=== PATIENT | male | born 2005 | race Caucasian/White ===

== ENCOUNTER 2025-01-06 10:19 | Outpatient (REF) | payer OTHER, SELFPAY ==
[2025-01-06 18:04] LABS: MANUAL DIFF FLAG NO
[2025-01-06 18:11] LABS: Appearance Urine Clear; Glucose Urine UA 100 mg/dL (Negative); PH 6.0 (5.0-9.0); Specific Gravity - Urine 1.020 (1.005-1.025)
[2025-01-06 18:17] LABS: Hematocrit 50.4 % (42.0-52.0); Hemoglobin 17.5 g/dl (14.0-18.0); Imm Gran Abs Auto 0.01 X10*3/uL (0.00-0.03); Imm Gran Pct Auto 0.2 % (0.0-0.4); Lymphocytes Absolute Auto 1.8 X10*3/uL (1.2-4.9); Mean Corpuscular HGB Conc 34.7 g/dl (31.0-36.0); Mean Corpuscular Hemoglobin 28.0 pg (27.0-33.0); Mean Corpuscular Volume 80.6 fL (80.0-98.0); NRBC Abs Auto 0.000 X10*3/uL (0.0-0.012); NRBC Pct Auto 0.0 /100WBC (0.0-0.2); Platelet Count 257 X10*3/uL (160-400); Red Blood Count 6.25 X10*6/uL (4.60-5.80); White Blood Count 5.5 X10*3/uL (4.8-10.8)
[2025-01-06 18:36] LABS: Alanine Aminotransferase 21 U/L (0-40); Albumin Level 5.4 g/dL (3.5-5.0); Alkaline Phosphatase 94 U/L (39-117); Anion Gap 11 (12-20); Aspartate Amino Transferase 31 U/L (5-37); Blood Urea Nitrogen 9 mg/dL (9-16); Calcium 10.4 mg/dL (8.4-10.2); Carbon Dioxide 29 mmol/L (22-29); Chloride 104 mmol/L (96-108); Cholesterol 126 mg/dL (<200); Estimated Glomerular Filt Rate > 60; HDL Cholesterol 56 mg/dL (>40); Potassium 4.3 mmol/L (3.3-5.1); Sodium 140 mmol/L (135-145); Total Protein 8.2 g/dL (6.5-8.0); Triglycerides 81 mg/dL (<150)
[2025-01-06 18:59] LABS: Folate 10.0 ng/mL (> or = 4.0); Vitamin B12 765 pg/mL (200-900)
[2025-01-07 03:14] LABS: CT PCR Urine NOT DETECTED (Not Detect.); NG PCR Urine NOT DETECTED (Not Detect.)
[2025-01-07 13:05] LABS: Syphilis Screen Nonreactive (Nonreactive)
[2025-01-07 14:16] LABS: HBS Num1 0.37 mIU/mL (0-7.99); HBsAGNum1 0.42 S/CO (0.00-0.99); HIV Num 1 0.07 S/CO (0.00-0.99); Hepatitis B Surface Antigen Negative (Negative); ~HepC Num1 0.16 S/CO (0.00-0.79); ~Hepatitis B Surface Antibody NONREACTIVE (Nonreactive); ~Hepatitis C Antibody Nonreactive (Nonreactive)
[2025-01-09 18:43] LABS: Chlamydia Trachomatis IgA <1:16 titer (<1:16)
[2025-01-10 15:24] LABS: VITAMIN D (1,25 OH) D3 42 pg/mL; Vit D (1,25-Dihydroxy) Total 42 pg/mL (18-72); Vitamin D (1,25 OH) D2 <8 pg/mL
== END 2025-01-06 10:20 | disposition home or self-care (01) ==
LOC: HO.HKASLDS 10:19
PROVIDERS: Visit Provider Student in an Organized Health Care Education/Training Program
DX: Z76.89 Persons encountering health services in other specified circumstances (principal); B80 Enterobiasis; H60.549 Acute eczematoid otitis externa, unspecified ear; Z71.9 Counseling, unspecified; Z13.6 Encounter for screening for cardiovascular disorders; Z11.4 Encounter for screening for human immunodeficiency virus [HIV]; Z11.3 Encounter for screening for infections with a predominantly sexual mode of transmission; Z13.1 Encounter for screening for diabetes mellitus; Z13.220 Encounter for screening for lipoid disorders
CPT/HCPCS: 80053; 80061; 81003; 82607; 82652; 82746; 83036; 85025; 86631; 86632; 86706; 86780; 86803; 87340; 87389; 87491; 87591; 96127

== ENCOUNTER 2025-01-06 10:19 | Outpatient (AMB) | payer OTHER, SELFPAY ==
--- NOTE | 2025-01-06 10:21 | MHC.PC.OV ---
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, strep throat Improvement Lead Required: No Accompanied by: Self / Same As Patient Allergies No Known Allergies Allergy (Verified 01/06/25 10:21) Tobacco use date assessed: 01/06/25 Dental Screening Dental Screen Date: 01/06/25 Did you have a dental visit in the last 12 months?: Yes Did you have a dental problem in the last 6 months where you did not have access to dental care?: No Was dental information given to patient?: Patient has dentist HPI HPI Comments History of Present Illness Details History of Present Illness The patient is a 19-year-old male presenting for a wellness visit and evaluation of itchy ears and anal region. Eczema: - Reports itchy ears for six months, initially relieved by ear drops, but symptoms have returned with severe itching causing bleeding. - Previous diagnosis of eczema was suggested by another physician. Pinworms: - Reports nocturnal anal itching without abdominal pain, suspected to be pinworms, and treatment with albendazole was discussed. Review of Systems - Dermatological: Reports itchy ears for six months, severe enough to cause bleeding. - Gastrointestinal: Reports nocturnal anal itching, denies abdominal pain. - ENT: Reports history of strep throat and double ear infection, denies current throat pain. 10-point ROS reviewed and negative except as noted in HPI Past Medical History - History of strep throat and double ear infection Health Maintenance - Comprehensive blood work including CBC, CMP, lipid panel, and vitamin levels planned. - Screening for HIV, Hepatitis B and C, and sexually transmitted infections planned. Physical Exam General: Well-appearing, in no acute distress. Vital signs: Within normal limits. HEENT: Normocephalic, atraumatic. PERRLA, EOMI. Conjunctiva clear, sclera anicteric. Oropharynx clear, mucous membranes moist. TMs intact bilaterally, but noted dermatitis and itchiness in the ears. Neck: Supple, no lymphadenopathy, no thyromegaly, no JVD or carotid bruits. Cardiovascular: RRR, normal S1/S2, no murmurs, rubs, or gallops. Peripheral pulses 2+ and symmetric. No edema. Respiratory: Lungs clear to auscultation bilaterally, no wheezes, rales, or rhonchi. Normal effort. Abdomen: Soft, non-tender, non-distended. Normoactive bowel sounds. No hepatosplenomegaly, no masses. MSK: Full range of motion, no joint swelling or deformity. Normal gait. Skin: Warm, dry, intact. No rashes, lesions, or pallor. Neuro: Alert and oriented x3. Cranial nerves II-XII intact. Strength 5/5 throughout. Sensation intact. Reflexes 2+ symmetric. Normal coordination and gait. Psych: Appropriate mood and affect. Normal judgment and insight. Plan 1. Dermatitis, unspecified L30.9 - Use mineral oil with a Q-tip for ear dryness and itching. Follow-up if symptoms persist. 2. Pinworms - Treat with albendazole, one dose now and repeat in two weeks. Explained treatment rationale. Discussion Notes During the visit, we discussed the patient's symptoms of itchy ears and anal region. I explained the potential diagnosis of eczema for the ears and pinworms for the anal itching. We reviewed the treatment plan, including the use of mineral oil for the ears and albendazole for pinworms. I emphasized the importance of follow-up if symptoms persist and reassured the patient about the nature of pinworms and the effectiveness of the treatment plan. Patient Instructions - Apply mineral oil to the ears with a Q-tip to reduce itching. - Take albendazole as prescribed: one dose now and repeat in two weeks. - Return for follow-up if symptoms persist or worsen. PFSH Family History (Updated 01/06/25 @ 10:28 by Micaela Quiles MA) Father Heart problem Mother Crohn disease Social History (Updated 01/06/25 @ 10:29 by Micaela Quiles MA) Housing: House Alcohol intake: current Alcohol intake frequency: does not drink Patient Tobacco Use Status: Former Tobacco user e-Cigarette/Vaping Use: Currently Using service: No Current occupational status: employed Cognitive needs: No Hearing needs: No Vision needs: No Questionnaire PHQ-9 Over the last 2 weeks, how often have you been bothered by any of the following problems? 1. Little interest or pleasure in doing things: not at all 2. Feeling down, depressed, or hopeless: not at all 3. Trouble falling or staying asleep, or sleeping too much: not at all 4. Feeling tired or having little energy: not at all 5. Poor appetite or overeating: not at all 6. Feeling bad about yourself - or that you are a failure or have let yourself or your family down: not at all 7. Trouble concentrating on things, such as reading the newspaper or watching television: not at all 8. Moving or speaking so slowly that other people could have noticed. Or the opposite - being so fidgety or restless that you have been moving around a lot more than usual: not at all 9. Thoughts that you would be better off or of hurting yourself in some way: not at all Total score: 0 Source: Developed by Drs. Gabe Herman, Sisi Salazar, Lonnie Hudson and colleagues, with an educational winnie from [employer]. Thrive Questionnaire Date Thrive assessed: 01/06/25 I am a: Patient What is your living situation today?: I have a steady place to live Within the past 12 months, did the food you bought not last and you didn't have the money to get more?: Never true Within the past 12 months, did you worry whether your food would run out before you got money to buy more?: Never true Do you have trouble paying for medicines?: No Do you have trouble getting transportation to medical appointments?: No Do you have trouble paying your heating and electricity bill?: No Do you have trouble taking care of your child, family member or friend?: No Do you have trouble with day-to-day activities such as bathing, preparing meals, shopping, managing finances, etc.?: No Are you currently unemployed and looking for a job?: No Are you interested in more education?: No Please select the resources that you would like help with: None THRIVE Score: 0 AUDIT C Alcohol Use Questionnaire (AUDIT-C) 1. How often do you have a drink containing alcohol?: Never 3. How often do you have six or more drinks on one occasion?: Never Total Score: 0 HAO-7 AMB Questionnaire HAO-7 Date HAO - 7 assessed: 01/06/25 Feeling nervous, anxious, or on edge: 0 = Not at all Not being able to stop or control worryin = Not at all Worrying too much about different things: 0 = Not at all Trouble relaxin = Not at all Being so restless that it is hard to sit still: 0 = Not at all Becoming easily annoyed or irritable: 0 = Not at all Feeling afraid as if something awful might happen: 0 = Not at all Total HAO-7 score (0-4 normal; 5-9 mild; 10-14 moderate; 15-21 severe): 0 Source: Developed by Drs. Gabe Herman, Sisi Salazar, Lonnie Hudson and colleagues, with an educational winnie from [employer]. Physical exam (Primary Care) Vital Signs: Last Vital Signs Temp 97.6 F 01/06/25 10:24 Pulse 95 01/06/25 10:24 Resp 16 01/06/25 10:24 BP 110/72 01/06/25 10:24 Pulse Ox 100 01/06/25 10:24 Oxygen Delivery Method Room Air 01/06/25 10:24 BMI result Body Mass Index 20.0 Tobacco/Smoking Status: Tobacco use Status Tobacco use date assessed 01/06/25 01/06/25 10:32 Patient Tobacco Use Status Former Tobacco user 01/06/25 10:32 e-Cigarette/Vaping Use Currently Using 01/06/25 10:32 PHQ-9: PHQ-9 Score PHQ-9: Total score 0 01/06/25 10:32 Thrive Assessment: Date of Thrive Assessment Date Thrive assessed 01/06/25 01/06/25 10:32 Coding Level of Care Code New Pt Level 3 (65566) Diagnoses Establishing care with new doctor, encounter for Z76.89 Encounter for screening, unspecified Z13.9 Counseling, unspecified Z71.9 Hypertension screen Z13.6 Screening for HIV (human immunodeficiency virus) Z11.4 Routine screening for STI (sexually transmitted infection) Z11.3 Screening for diabetes mellitus Z13.1 Screening for lipoid disorders Z13.220 Pinworms B80 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 Assessment & Plan Assessment & Plan (1) Establishing care with new doctor, encounter for: Code(s): Z76.89 - Persons encountering health services in other specified circumstances (2) Encounter for screening, unspecified: Code(s): Z13.9 - Encounter for screening, unspecified (3) Counseling, unspecified: Code(s): Z71.9 - Counseling, unspecified (4) Hypertension screen: Code(s): Z13.6 - Encounter for screening for cardiovascular disorders (5) Screening for HIV (human immunodeficiency virus): Code(s): Z11.4 - Encounter for screening for human immunodeficiency virus [HIV] (6) Routine screening for STI (sexually transmitted infection): Code(s): Z11.3 - Encounter for screening for infections with a predominantly sexual mode of transmission (7) Screening for diabetes mellitus: Code(s): Z13.1 - Encounter for screening for diabetes mellitus (8) Screening for lipoid disorders: Code(s): Z13.220 - Encounter for screening for lipoid disorders (9) Pinworms: Code(s): B80 - Enterobiasis (10) Eczema of external auditory canal: Code(s): H60.549 - Acute eczematoid otitis externa, unspecified ear Plan Orders: Orders Complete Blood Count Auto Diff Today Z13.9 - Encounter for screening, unspecified, Z76.89 - Persons encountering health services in other specified circumstances Comprehensive Met. Panel Today Z13.9 - Encounter for screening, unspecified, Z76.89 - Persons encountering health services in other specified circumstances Hepatitis B Surface Antibody Today Z13.9 - Encounter for screening, unspecified, Z76.89 - Persons encountering health services in other specified circumstances HIV Ab/Ag Today Z13.9 - Encounter for screening, unspecified, Z76.89 - Persons encountering health services in other specified circumstances Syphilis Screen Today Z13.9 - Encounter for screening, unspecified, Z76.89 - Persons encountering health services in other specified circumstances CT NG by PCR Urine Today Z13.9 - Encounter for screening, unspecified, Z76.89 - Persons encountering health services in other specified circumstances UA CC w/rflx Micro + Cult Today Z13.9 - Encounter for screening, unspecified, Z76.89 - Persons encountering health services in other specified circumstances Vitamin D 1,25 dihydroxy Today Z13.9 - Encounter for screening, unspecified, Z76.89 - Persons encountering health services in other specified circumstances Hemoglobin A1c Today Z13.9 - Encounter for screening, unspecified, Z76.89 - Persons encountering health services in other specified circumstances Hepatitis B Surface Antigen Today Z13.9 - Encounter for screening, unspecified, Z76.89 - Persons encountering health services in other specified circumstances Hepatitis C Antibody Reflex Today Z13.9 - Encounter for screening, unspecified, Z76.89 - Persons encountering health services in other specified circumstances Lipid Panel Today Z13.9 - Encounter for screening, unspecified, Z76.89 - Persons encountering health services in other specified circumstances Chlamydia Species Ab Panel Today Z13.9 - Encounter for screening, unspecified, Z76.89 - Persons encountering health services in other specified circumstances Vitamin B12 and Folate Today Z13.9 - Encounter for screening, unspecified, Z76.89 - Persons encountering health services in other specified circumstances Medications: New mebendazole repeat dose in 2 weeks 100 mg PO ONCE 2 tabs 0RF 2 days
[2025-01-06 10:24] VITALS: BP 110/72; PULSE 95; RESP 16; TEMP 36.4; O2SAT 100
--- OUTSIDE RECORDS SUMMARY | 2025-01-06 12:39 | XMS_ITS | Encounter Summary ---
Author Organization [facility] Address [address] [place] [address] [place] [address] Phone Care Team Providers Care Sap [employer]ico Business Analyst Name Role Phone Hillary Gamboa MD Primary Care Provider Pcp, Unknown Unavailable Unavailable Encounter Details Date Type Department Care Team (Latest Contact Info) Description 02/22/2017 Transcribe Orders [facility] [address] [place] [id number] System, Provider Not In, PhD Partners [address] [address] Acute streptococcal pharyngitis (Primary Dx) Social History Tobacco Use Types Packs/Day Years Used Date Smoking Tobacco: Never Assessed Sex and Gender Information Value Date Recorded Sex Assigned at Not on file Legal Sex Male 8:42 PM EDT Gender Identity Not on file Sexual Orientation Not on file documented as of this encounter Plan of Treatment Not on file documented as of this encounter Results * Beta strep group A surveillance culture (02/22/2017 5:29 PM EST) Specimen Source/ Description THROAT THROAT [facility] Special Requests None [facility] Culture/Test NEGATIVE FOR GRP A BETA STREPTOCOCCI [facility] Report Status 02/24/2017 FINAL [facility] Other (Throat) 02/22/2017 5: 29 PM EST 02/22/2017 5:39 PM EST us Provider Not In System PhD MICROBIOLOGY - GENERA L ORDERABLES Final Result [facility] [address] [place] [address] documented in this encounter Visit Diagnoses Diagnosis Acute streptococcal pharyngitis- Primary Streptococcal sore throat documented in this encounter Care Teams S[employer] Business Analyst Relationship Specialty Start Date End Date Hillary Gamboa MD PCP - General Pediatrics 02/22/17 08/04/20 Pcp, Unknown PCP - Pediatrics 08/04/20 documented as of this encounter Additional Source Comments The information contained in this document represents components of the legal health record. It is not the complete legal health record.[facility]
--- OUTSIDE RECORDS SUMMARY | 2025-01-06 12:39 | XMS_ITS | Encounter Summary ---
Author Organization [facility] Address [address] [place], [place] [id number] Phone Care Team Providers Care Clarity Specialists Name Role Phone Jose Powell MD Primary Care Provider [phone] Reason for Visit * Reason Onset Date Comments flu vaccine 01/02/2025 Encounter Details Date Type Department Care Team (Late st Contact Info) Description 01/02/2025 Telephone [facility] [address] [place] [address] Lebron Destine[place] [address] [place] [address] flu vaccine Social History Tobacco Use Types Packs/Day Years Used Date Smoking Tobacco: Some Days Cigarettes Smokeless Tobacco: Current Comments:Will vape nicotine every few months Alcohol Use Standard Drinks/Week Comments Not Asked 0 (1 standard drink = 0.6 oz pur e alcohol) every 2 - 3 months or so Hunger/Food Answer Date Recorded In the last 12 months, did y ou or your family ever eat less than you felt you should because there wasn't enough money for food? No 05/16/2022 Stable Housing Answer Date Recorded Are you worried that in the next 2 months you may not have stable housing? No 05/16/2022 Transportation Concerns Answer Date Rec orded In the last 12 months, have you or your family ever had to go without healthcare because you didn't have a way to get there? No 05/16/2022 Hazards in Home Answer Date Recorded Think about the place you li ve. Do you have problems with any of the following? Pests (mice or roaches), mold, no/not working smoke detectors, water leaks, no window guards. No 2022 Financing Utilities Answer Date Recorde d In the last 12 months, has t he electric, gas, oil, or water company threatened to shut off your services in your home? No 05/16/2022 Safety at Home Answer Date Recorded Are you or your family worried about feeling saf e in your home? No 05/16/2022 Outside Support Answer Date Recorded Do you feel that you need mo re support from other people or programs to help you care for yourself or your family? No 05/16/2022 Understanding Health Concerns Answer Da te Recorded Do you need help understandi ng your or your child's healthcare needs (diagnosis, medications, plan, etc.)? No 05/16/2022 Financing Health Concerns Answer Date R ecorded In the last 12 months, was t here a time when your child needed to see a doctor or get medications or supplies but could not because of cost? No 05/16/2022 Missing School or Work Answer Date Akshat rded Did you or your child miss s chool or work because of a health problem that could have been avoided? No 05/16/2022 Sex and Gender Information Value Date Recorded Sex Assigned at Not on file Legal Sex Male 9:56 AM EST Gender Identity Not on file Sexual Orientation Lesbian or Chiu 06/13/2023 2: 23 PM EST documented as of this encounter Miscellaneous Notes * Telephone Encounter - Destiney Lebron - 01/02/2025 3:17 PM EDT Pt called back and declined flu vac. 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 * Telephone Encounter - Destiney Lebron - 01/02/2025 2:20 PM EDT LVM for the parent/guardian to call the office to schedule flu vaccine. documented in this encounter Plan of Treatment Not on file documented as of this encounter Visit Diagnoses Not on filedocumented in this encounter Care Teams Clarity Specialists Relationship Specialty Start Date End Date Jose Powell MD [address] [place] [address] JENNIFER Schwartz [id number] PCP - General Pediatrics 12/13/23 documented as of this encounter
--- OUTSIDE RECORDS SUMMARY | 2025-01-06 12:39 | XMS_ITS | Encounter Summary ---
Author Organization [facility] Address [address] [place] [address] [place] [phone] Phone Care Team Providers Care Photo Stylist Name Role Phone Hillary Gamboa MD Primary Care Provider Pcp, Unknown Unavailable Unavailable Encounter Details Date Type Department Care Team (Latest Contact Info) Description 05/07/2018 Transcribe Orders [facility] [address] [place] [id number] Hillary Gamboa MD [address] [place] [phone] Encounter for routine child health examination without abnormal findings (Primary Dx) Social History Tobacco Use Types Packs/Day Years Used Date Smoking Tobacco: Never Assessed Sex and Gender Information Value Date Recorded Sex Assigned at Not on file Legal Sex Male 8:42 PM EDT Gender Identity Not on file Sexual Orientation Not on file documented as of this encounter Plan of Treatment Not on file documented as of this encounter Results * Cholesterol, total (05/07/2018 8:03 AM EST) CHOLESTEROL 109 0 - 169 mg/dL [facility] Comment: Pediatric Reference Ranges for 2 to 18 years Acceptable: Less than 170 mg/dL Borderline: 170 - 199 mg/dL High: Greater than or equal to 200 mg/dL Blood 05/07/2018 8:03 AM EST 05/07/2018 8:11 AM EST us Hillary Gamboa MD LAB BLOOD ORDERABLES Fi nal Result [address] [address] * Glucose (05/07/2018 8:03 AM EST) GLUCOSE 84 70 - 99 mg/dL [facility] Blood 05/07/2018 8:03 AM EST 05/07/2018 8:11 AM EST Hillary Gamboa MD LAB BLOOD ORDERABLES Fi nal Result Performing Organization Address City/[facility]/ZIP Co de Phone Number [address] [address] * TSH (05/07/2018 8:03 AM EST) Pathologist [facility] TSH 2.12 0.27 - 4.20 uIU/mL [facility] Blood 05/07/2018 8:03 AM EST 05/07/2018 8:11 AM EST Hillary Gamboa MD LAB BLOOD ORDERABLES Fi nal Result Performing Organization Address [facility] Co de Phone Number [address] [address] * (ABNORMAL) CBC and differential (05/07/2018 8:03 AM EST) WBC 4.03 3.40 - 11.20 K/uL [facility] RBC 5.64(H) 4.50 - 5.50 M/uL [facility] HGB 14.8 13.0 - 17.0 g/dL [facility] HCT 41.9 40.0 - 51.0 % [facility] PLT 170 130 - 400 K/uL [facility] MCV 74.3(L) 79.0 - 98.0 fL [facility] MCH 26.2 25.0 - 35.0 pg [facility] MCHC 35.3 31.0 - 37.0 g/dL [facility] RDW 12.8 10.8 - 14.6 % [facility] MPV 11.4 9.4 - 12.4 fl [facility] NRBC 0.00 0.00 /100 WBCs [facility] ABSOLUTE NRBC 0.00 0.00 K/uL [facility] DIFF METHOD Auto [facility] NEUTS 25.9(L) 45.30 - 77.70 % [facility] LYMPHS 61.5(H) 12.30 - 39.70 % [facility] MONOS 10.2 4.10 - 12.80 % [facility] EOS 1.7 0 - 7.2 % [facility] BASOS 0.5 0 - 2.80 % [facility] Granulocytes, immature (%) 0.2 0.0 - 0.9 % [facility] ABSOLUTE NEUTS 1.04(L) 1.40 - 7.70 K/uL [facility] ABSOLUTE LYMPHS 2.48 0.60 - 3.20 K/uL [facility] ABSOLUTE MONOS 0.41 0.11 - 0.59 K/uL [facility] ABSOLUTE EOS 0.07 0.01 - 0.50 K/uL [facility] ABSOLUTE BASOS 0.02 0.00 - 0.08 K/uL [facility] Granulocytes, immature 0.01 0.00 - 0.05 K/uL [facility] Blood 05/07/2018 8:03 AM EST 05/07/2018 8:11 AM EST Hillary Gamboa MD LAB BLOOD ORDERABLES Fi nal Result Performing Organization Address City/State/[facility] Co de Phone Number [address] [phone] documented in this encounter Visit Diagnoses Diagnosis Encounter for routine child health examination without abnormal findings- Primary documented in this encounter Care Teams Photo Stylist Relationship Specialty Start Date End Date Hillary Gamboa MD PCP - General Pediatrics 02/22/17 08/04/20 Pcp, Unknown PCP - Pediatrics 08/04/20 documented as of this encounter Additional Source Comments The information contained in this document represents components of the legal health record. It is not the complete legal health record.[facility]
--- OUTSIDE RECORDS SUMMARY | 2025-01-06 12:39 | XMS_ITS | Clinical Summary ---
Author Organization [facility] Address [address] [place], [place] [id number] Phone Care Team Providers Care Silver Chaser Name Role Phone Jose Powell MD Primary Care Provider [phone] Allergies No known active allergies Medications Spacer/Aero-Hold ing Chambers device Active tretinoin 0.025 % cream 2 Active pseudoephedrine 120 MG 12 hr tabletIndication s:Seasonal allergies Take 1 tablet (120 mg total) by mouth every 12 (twelve) hours for 14 days. Take in AM only 28 tablet 3 Active cetirizine 10 MG tabletIndication s:Seasonal allergies Take 1 tablet (10 mg total) by mouth daily. 90 tablet 1 3 Active Additional Information Patient not taking.Reported on 02/16/2023 albuterol HFA 108 (90 Base) MCG/ACT inhalerIndicatio ns:Wheeze Inhale 2 puffs every 4 (four) hours as needed for wheezing or shortness of breath. Inhale 2 puffs every 4 hours as needed. 2 Units 3 Active M-PAP 160 MG/5ML liquid TAKE 30 ML BY MOUTH EVERY 6 HOURS NEEDED FOR PAIN 3 Active Childrens Ibuprofen 100 100 MG/5ML suspension SHAKE LIQUID AND TAKE 30 ML BY MOUTH EVERY 6 HOURS NEEDED FOR PAIN Active Fluticasone-Salm eterol (Wixela Inhub) 250-50 MCG/ACT aerosol powderIndication s:Mild intermittent asthma with acute exacerbation Inhale 1 puff 2 (two) times a day. 60 each 1 4 Active Active Problems Problem Noted Date Diagnosed Date Acne vulgaris 06/13/2023 Assessment & Plan (06/13/2023 3:24 PM EST): Has retin A topical at home that I suggested that he restart Skin care reviewed in detail with [facility] Asthma 05/19/2022 Overview (05/19/2022): Historical ICS use with Flovent/QVAR until 2019, PRN albuterol since then with primary viral URI triggers, mild summer pollen allergy triggers if exercising outdoors. Assessment & Plan (11/01/2023 3:29 PM EDT): 11/01/2023 (age 18yr): Cough x 3 weeks, started with URI and now just has a productive cough. Tried using and broken Qvar 40 inhaler which did not help. Exam unremarkable. Likely ongoing asthma exacerbation. - trial of advair 250 BID, instructional video sent. - follow PRN - CxR if not better or if worsens. Assessment & Plan (09/13/2022 12:02 PM EDT): No sign of exacerbation today with combined URI+allergic rhiniis triggers, suggest albuterol 2p q 4-6hr PRN Assessment & Plan (05/19/2022 11:48 AM EST): Stable, rare symptoms with Viral URIs. NO albuterol refill or Med auth form needed today. Flu shot reportedly given at local pharmacy and COVID vaccine declined. COVID-19 vaccination declined 05/19/2022 ADHD (attention deficit hyperactivity disorder) 05/16/2022 Overview (05/19/2022): Treated in the past ( 2019) with Vyvanse, IEP in place and performing well,denies symptoms of concern as of [facility] 05/16/2022 Assessment & Plan (05/19/2022 11:45 AM EST): Sandro doing well in school with IEP support including academic support and environmental modifications, denies need to explore return to medical treatment. Social anxiety disorder 04/02/2021 Overview (10/27/2023): Therapy begun with [facility] 03/202104/02/21; diag completed and dx on this date. [facility] 10/06/21; Working on contacting outpatient providers. F/u appt will be scheduled and services bridged. [facility] 02/25/22; Pt has presented consistent improvement in mood, fam unable to connect with outpatient provider. Monthly f/u appt will be scheduled. [facility] 10/27/23; Last appointment, goals met. [facility] Assessment & Plan (10/27/2023 11:20 AM EDT): Identified symptoms support diagnosis related to anxiety and depression. Symptoms have been persistent and experienced most days, and have impacted daily functioning. Follow up interventions focus on processing inner or environmental triggers and developing strategies to manage emotions and cognitions would be of benefit. Other referral will be discussed and completed as necessary. PLAN: Follow up with [facility]; Last appointment, goals met. How to reconnect with support at [facility] was discussed. Patient goal is to reduce symptoms of depression and anxiety. Behavioral Recommendations: Attend to scheduled appt. Assessment & Plan (06/13/2023 3:26 PM EST): Seen by Dolores a few weeks ago - has follow up in one month and will continue as needed Assessment & Plan (03/25/2023 9:15 AM EST): Identified symptoms support diagnosis related to anxiety and depression. Symptoms have been persistent and experienced most days, and have impacted daily functioning. Follow up interventions focus on processing inner or environmental triggers and developing strategies to manage emotions and cognitions would be of benefit. Other referral will be discussed and completed as necessary. PLAN: Follow up with [facility]; Schedule monthly check-ins. I advised Sandro to call next week to schedule as my schedule is not available. Patient goal is to reduce symptoms of depression and anxiety. Behavioral Recommendations: Continue focusing on strategies discussed during our visits Attend to scheduled appt. Assessment & Plan (01/02/2023 2:19 PM EDT): Identified symptoms support diagnosis related to anxiety and depression. Symptoms have been persistent and experienced most days, and have impacted daily functioning. Follow up interventions focus on processing inner or environmental triggers and developing strategies to manage emotions and cognitions would be of benefit. Other referral will be discussed and completed as necessary. PLAN: Follow up with [facility]; Schedule monthly check-ins. Virtual visit scheduled, family is aware that appt could be scheduled in person or virtual. Patient goal is to reduce symptoms of depression and anxiety. Behavioral Recommendations: Continue focusing on strategies discussed during our visits Attend to scheduled appt. Assessment & Plan (05/23/2022 4:55 PM EST): Identified symptoms support diagnosis related to anxiety and depression. Symptoms have been persistent and experienced most days, and have impacted daily functioning. Follow up interventions focus on processing inner or environmental triggers and developing strategies to manage emotions and cognitions would be of benefit. Other referral will be discussed and completed as necessary. PLAN: 1. Follow up with [facility]; Schedule monthly check-ins. Virtual visit scheduled, family is aware that appt could be scheduled in person or virtual. 2. Patient goal is to reduce symptoms of depression and anxiety. 3. Behavioral Recommendations: a. Continue focusing on strategies discussed during our visits b. Attend to scheduled appt. Assessment & Plan (05/19/2022 11:43 AM EST): Currently much improved following year long therapy with [facility]. Assessment & Plan (04/22/2022 4:42 PM EST): Identified symptoms support diagnosis related to anxiety and depression. Symptoms have been persistent and experienced most days, and have impacted daily functioning. Follow up interventions focus on processing inner or environmental triggers and developing strategies to manage emotions and cognitions would be of benefit. Other referral will be discussed and completed as necessary. PLAN: 1. Follow up with [facility]; Virtual visit scheduled, family is aware that appt could be scheduled in person or virtual. 2. Patient goal is to reduce symptoms of depression and anxiety. 3. Behavioral Recommendations: a. Continue focusing on strategies discussed during our visits b. Attend to scheduled appt. Assessment & Plan (03/19/2022 11:06 AM EST): Identified symptoms support diagnosis related to anxiety and depression. Symptoms have been persistent and experienced most days, and have impacted daily functioning. Follow up interventions focus on processing inner or environmental triggers and developing strategies to manage emotions and cognitions would be of benefit. Other referral will be discussed and completed as necessary. PLAN: 1. Follow up with [facility]; Virtual visit on April will scheduled when clinicians schedule is available, family is aware that appt could be scheduled in person or virtual. 2. Patient goal is to reduce symptoms of depression and anxiety. 3. Behavioral Recommendations: a. Continue focusing on strategies discussed during our visits b. Attend to scheduled appt. Assessment & Plan (02/25/2022 2:19 PM EST): Identified symptoms support diagnosis related to anxiety and depression. Symptoms have been persistent and experienced most days, and have impacted daily functioning. Follow up interventions focus on processing inner or environmental triggers and developing strategies to manage emotions and cognitions would be of benefit. Other referral will be discussed and completed as necessary. PLAN: 1. Follow up with [facility]; Virtual visit scheduled, family is aware that appt could be scheduled in person or virtual. 2. Patient goal is to reduce symptoms of depression and anxiety. 3. Behavioral Recommendations: a. Continue focusing on strategies discussed during our visits Assessment & Plan (02/11/2022 4:56 PM EDT): Identified symptoms support diagnosis related to anxiety and depression. Symptoms have been persistent and experienced most days, and have impacted daily functioning. Follow up interventions focus on processing inner or environmental triggers and developing strategies to manage emotions and cognitions would be of benefit. Other referral will be discussed and completed as necessary. PLAN: 1. Follow up with [facility]; Virtual visit scheduled, family is aware that appt could be scheduled in person or virtual. 2. Patient goal is to reduce symptoms of depression and anxiety. 3. Behavioral Recommendations: a. Continue focusing on strategies discussed during our visits Assessment & Plan (01/14/2022 10:59 AM EDT): Identified symptoms support diagnosis related to anxiety and depression. Symptoms have been persistent and experienced most days, and have impacted daily functioning. Follow up interventions focus on processing inner or environmental triggers and developing strategies to manage emotions and cognitions would be of benefit. Other referral will be discussed and completed as necessary. PLAN: 1. Follow up with [facility]; Virtual visit scheduled, family is aware that appt could be scheduled in person or virtual. 2. Patient goal is to reduce symptoms of depression and anxiety. 3. Behavioral Recommendations: a. Continue focusing on strategies discussed during our visits Assessment & Plan (12/24/2021 9:33 AM EDT): Identified symptoms support diagnosis related to anxiety and depression. Symptoms have been persistent and experienced most days, and have impacted daily functioning. Follow up interventions focus on processing inner or environmental triggers and developing strategies to manage emotions and cognitions would be of benefit. Other referral will be discussed and completed as necessary. PLAN: 1. Follow up with [facility]; Virtual visit scheduled, family is aware that appt could be scheduled in person or virtual. 2. Patient goal is to reduce symptoms of depression and anxiety. 3. Behavioral Recommendations: a. Continue focusing on strategies discussed during our visits Assessment & Plan (12/02/2021 1:25 PM EDT): Identified symptoms support diagnosis related to anxiety and depression. Symptoms have been persistent and experienced most days, and have impacted daily functioning. Follow up interventions focus on processing inner or environmental triggers and developing strategies to manage emotions and cognitions would be of benefit. Other referral will be discussed and completed as necessary. PLAN: 1. Follow up with [facility]; Virtual visit scheduled, family is aware that appt could be scheduled in person or virtual. 2. Patient goal is to reduce symptoms of depression and anxiety. 3. Behavioral Recommendations: a. After school reflection focus on identifying positive outcomes of the day. Assessment & Plan (11/16/2021 2:02 PM EDT): Identified symptoms support diagnosis related to anxiety and depression. Symptoms have been persistent and experienced most days, and have impacted daily functioning. Follow up interventions focus on processing inner or environmental triggers and developing strategies to manage emotions and cognitions would be of benefit. Other referral will be discussed and completed as necessary. PLAN: 1. Follow up with [facility]; Virtual visit scheduled, family is aware that appt could be scheduled in person or virtual. 2. Patient goal is to reduce symptoms of depression and anxiety. 3. Behavioral Recommendations: a. Continue focusing on strategies we have discussed. Assessment & Plan (10/25/2021 4:58 PM EDT): Identified symptoms support diagnosis related to anxiety and depression. Symptoms have been persistent and experienced most days, and have impacted daily functioning. Follow up interventions focus on processing inner or environmental triggers and developing strategies to manage emotions and cognitions would be of benefit. Other referral will be discussed and completed as necessary. PLAN: 1. Follow up with [facility]; Virtual visit scheduled, family is aware that appt could be scheduled in person or virtual. 2. Patient goal is to reduce symptoms of depression and anxiety. 3. Behavioral Recommendations: a. Identify outpatient providers to contact. b. Continue focusing on strategies we have discussed. Assessment & Plan (10/07/2021 8:33 AM EDT): Identified symptoms support diagnosis related to anxiety and depression. Symptoms have been persistent and experienced most days, and have impacted daily functioning. Follow up interventions focus on processing inner or environmental triggers and developing strategies to manage emotions and cognitions would be of benefit. Other referral will be discussed and completed as necessary. PLAN: 1. Follow up with [facility]; Virtual visit scheduled, family is aware that appt could be scheduled in person or virtual. 2. Patient goal is to reduce symptoms of depression and anxiety. 3. Behavioral Recommendations: a. Identify recharging spaces and goals for the summer. b. Identify outpatient providers to contact. Resolved Problems Problem Noted Date Diagnosed Date Resolved Date Major depressive disorder in partial remission 04/02/2021 10/27/2023 Overview (05/19/2022): 04/02/21; diag made by Dolores - ongoing therapy , last seen 04/22/22 and much improved today 05/16/22 with normal depression screen. Assessment & Plan (10/13/2023 11:27 AM EDT): Identified symptoms support diagnosis related to anxiety and depression. Symptoms have been persistent and experienced most days, and have impacted daily functioning. Follow up interventions focus on processing inner or environmental triggers and developing strategies to manage emotions and cognitions would be of benefit. Other referral will be discussed and completed as necessary. PLAN: Follow up with [facility]; Virtual visit scheduled. Patient goal is to reduce symptoms of depression and anxiety. Behavioral Recommendations: Continue focusing on strategies discussed during our visits Attend to scheduled appt. Assessment & Plan (09/22/2023 1:49 PM EDT): Identified symptoms support diagnosis related to anxiety and depression. Symptoms have been persistent and experienced most days, and have impacted daily functioning. Follow up interventions focus on processing inner or environmental triggers and developing strategies to manage emotions and cognitions would be of benefit. Other referral will be discussed and completed as necessary. PLAN: Follow up with [facility]; Virtual visit scheduled. Patient goal is to reduce symptoms of depression and anxiety. Behavioral Recommendations: Continue focusing on strategies discussed during our visits Attend to scheduled appt. Assessment & Plan (06/13/2023 3:25 PM EST): Continue with [facility] - has follow up in one month Assessment & Plan (05/20/2023 11:46 AM EST): Identified symptoms support diagnosis related to anxiety and depression. Symptoms have been persistent and experienced most days, and have impacted daily functioning. Follow up interventions focus on processing inner or environmental triggers and developing strategies to manage emotions and cognitions would be of benefit. Other referral will be discussed and completed as necessary. PLAN: Follow up with [facility]; Virtual visit in one month, I advised Sandro to call if sooner appt is needed. Patient goal is to reduce symptoms of depression and anxiety. Behavioral Recommendations: Continue focusing on strategies discussed during our visits Attend to scheduled appt. Assessment & Plan (05/06/2023 10:41 AM EST): Identified symptoms support diagnosis related to anxiety and depression. Symptoms have been persistent and experienced most days, and have impacted daily functioning. Follow up interventions focus on processing inner or environmental triggers and developing strategies to manage emotions and cognitions would be of benefit. Other referral will be discussed and completed as necessary. PLAN: Follow up with [facility]; Virtual visit scheduled in 2 weeks Patient goal is to reduce symptoms of depression and anxiety. Behavioral Recommendations: Continue focusing on strategies discussed during our visits Attend to scheduled appt. Assessment & Plan (02/04/2023 11:00 AM EDT): Identified symptoms support diagnosis related to anxiety and depression. Symptoms have been persistent and experienced most days, and have impacted daily functioning. Follow up interventions focus on processing inner or environmental triggers and developing strategies to manage emotions and cognitions would be of benefit. Other referral will be discussed and completed as necessary. PLAN: Follow up with [facility]; Schedule monthly check-ins. Virtual visit scheduled, family is aware that appt could be scheduled in person or virtual. Patient goal is to reduce symptoms of depression and anxiety. Behavioral Recommendations: Continue focusing on strategies discussed during our visits Attend to scheduled appt. Assessment & Plan (05/19/2022 11:42 AM EST): Normal Depression symptoms screen today, pt in ongoing therapy since 03/2021 with Dolores but much improved with no interest in alternate referral over her upcomming maternity leave period. History of 2019 novel langley virus disease (COVID-19) 10/26/2020 05/16/2022 Overview (10/26/2020): 06/2020 Encounters Date Type Department Care Team Description 01/02/2025 Telephone [facility] - [address] [address] [place] flu vaccine from Last 3 Months Immunizations Immunization Administration Dates Next Due DTaP 04/30/2009,08/01/2006 DTaP / Hep B / IPV 2005,2005, 006 H1N1 04/06/2009,03/09/2009 HPV Vaccine 9 Valent 04/27/2017,05/27/2016 Hep A, ped/adol 01/25/2008,10/26/2006 Hib (PRP-T) 10/26/2006, 6,2005,06/22 IPV 04/28/2010 Influenza 01/03/2009,01/01/2008,01/24/2007 Influenza, injectable, MDCK, preservative free, quadrivalent 02/28/2021 Influenza, injectable, quadrivalent 02/02/2016 Influenza, injectable, quadr ivalent, preservative free 06/13/2023,02/03/2020,01/19/2019,02/13,01/04/2017 MMR 04/28/2010,08/01/2006 Meningococcal Conj (Menactra) MCV4P 05/27/2016 Meningococcal Conj (Menquadfi) MCV4TT 12/13/2021 Pneumococcal Conjugate 05/02/2006,2005,2005,06/22 Tdap 05/20/2015 Varicella 02/04/2010,05/10/2006 Family History Relation Name Status Comments Father Father: anxiety , depression, migraines, umbilicial hernia repair age 30s Maternal Grandfather healthy Maternal Grandmother allergi es, asthma, itchiness and swelling from mlk and other foods, resp. allergies Mother Mother: Crohn's , skin hypersensitive, gets hives from dairy foods Other 1 allergies, asth ma, itchiness and swelling from mlk and other foods, resp. allergies Other 2 anxiety, depres cristian, migraines, umbilicial hernia repair age 30s Other 3 Crohn's, skin h ypersensitive, gets hives from dairy foods Other 4 healthy Other 5 high b/p, alma nal CH, alcohol abuser Other 6 overweight, sidra betes Other 7 Maternal Grand Mother: allergies, asthma, itchiness and swelling from mlk and other foods, resp. allergies Other 8 Maternal Grand Father: healthy Other 9 Paternal Grand Father: high b/p, marginal CH, alcohol abuser Other 10 Paternal Grand Mother: overweight, diabetes Paternal Grandfather high b/ p, marginal CH, alcohol abuser Paternal Grandmother overwei ght, diabetes Social History Tobacco Use Types Packs/Day Years Used Date Smoking Tobacco: Some Days Cigarettes Smokeless Tobacco: Current Tobacco Cessation:Ready to Q uit: Not Asked; Counseling Given: Not Answered Comments:Will vape nicotine every few months Alcohol [...] or Chiu 06/13/2023 2: 23 PM EST Last Filed Vital Signs Vital Sign Reading Time Taken Comments Blood Pressure 132/86 06/13/2023 1:46 PM EST Pulse 94 11/01/2023 2:25 PM EDT Temperature 36.7 C (98.1 F) 11/01/2023 2:25 PM EDT Respiratory Rate - - Oxygen Saturation 97% 11/01/2023 2:25 PM EDT Inhaled Oxygen Concentration - - Weight 64 kg (141 lb) 11/01/2023 2:25 PM EDT Height 182.1 cm (5' 11.7 ) 06/13/2023 1:46 PM ES T Body Mass Index 19.28 06/13/2023 1:46 PM EST Body Mass Index Percentile 11.20% 11/01/2023 2:2 5 PM EDT Growth Chart: [facility] (Boys, 2-2 0 Years) Plan of Treatment Health Maintenance Due Date Last Done Comments HIV Screening 2005 Syphilis Screening (consider for higher risk patients) 2005 Pneumococcal Vaccine (1 of 1 - PPSV23, PCV20, or PCV21) 2011 05/02/2006, 2005, 2005, Additional history exists Men B Vaccine (1 of 2 - Standard) 2021 Hepatitis C Screening 2023 Chlamydia and Gonorrhea Screening 04/17/2024 023 Influenza Vaccines (#1) 2024 06/13/19, 02/28/2021, 02/03/2020, Additional history exists COVID-19 Vaccine (3 - 2024- 6 season) 2024 11/29/2020, 11/08/2020 DTaP,Tdap,and Td Vaccines (7 - Td or Tdap) 05/20/2025 05/20/2015, 04/30/2009, 08/01/2006, Additional history exists Hepatitis B Vaccines Completed 2005, 2005, 2005 HIB Vaccines Completed 10/26/2006, 10/15, 2005, Additional history exists Hepatitis A Vaccines Completed 01/25/2008, 10/27/19 07 Varicella Vaccines Completed 02/04/2010, 05/10/2006 IPV Vaccines Completed 04/28/2010, 10/15, 2005, Additional history exists MMR Vaccines Completed 04/28/2010, 08/01/2006 HPV Vaccines Completed 04/27/2017, 05/27/2016 Meningococcal Vaccine Completed 12/13/2021, 017 Procedures * Due to [place] [employer] law, this organization might not be sharing sensitive test results. Procedure Name Priority Date/Time Associated Diagnosis Comments CHLAMYDIA AND GONORRHEA, AMPLIFIED Routine 05/16/2022 5:01 PM EST Routine screening for STI (sexually transmitted infection) from Last 3 Months or Most Recently Relevant to Health Maintenance Results * Due to [place] [employer] law, this organization might not be sharing sensitive test results. * Chlamydia and Gonorrhoea, Amplified (05/16/2022 5:01 PM EST) Chlamydia Trachomatis, DNA Probe NEGATIVE (NEG) [facility] Comment: No Chlamydia Trachomatis RNA detected in this patient's sample (REFERENCE RANGE/NORMAL VALUE: NOT DETECTED) Note: This test uses almond cutting machine tender- mediated amplification method to detect rRNA from C. Trachomatis URINE GC AMP PROBE NEGATIVE (NEG) [facility] Comment: No Neisseria Gonorrhoeae RNA detected in this patient's sample (REFERENCE RANGE/NORMAL VALUE: NOT DETECTED) NOTE: This test uses almond cutting machine tender-mediated amplification method to detect rRNA from N.Gonorrhoeae. A negative result does not preclude infection. In the case of a negative urine result, testing of an endocervical(female) or urethral (male) specimen is recommended if there is high clinical suspicion of infection. Due to very high sensitivity of Nucleic Acid Amplification Test, false positive results may occur. Therefore, specimen handling is extremely important. In patients in whom the disease is unlikely, additional sample for testing should be considered after an initial positive result. The performance characteristics of this test have not been evaluated in children. The Aptima Combo2 assay is not intended for the evaluation of suspected sexual abuse or for other medico-legal indications. The ordering provider should assess if the patient had consensual sex without risk of sexual abuse. Consult the [facility] if needed. Contact phone number . Therapeutic failure or success cannot be determined with the Aptima Combo2 assay since nucleic acid may persist following appropriate antimicrobial therapy. The Centers for Disease Control and Prevention (CDC) recommends confirmatory retesting using culture or a different nucleic acid amplification test when positive results occur, if indicated. Testing performed or reported by [facility], a Service of [facility], [address] [place] [address] Joe Yates MD, Slip Seat Coverer [facility]# [id number] Urine (Urine) 05/16/2022 5:0 1 PM EST 05/17/2022 9:08 AM EST Demetria Montez MD LAB MICROBIOLOGY - GENERAL [place] RIGGS Final Result [facility] from Last 3 Months or Most Recently Relevant to Health Maintenance Insurance AETNA AETNA Care Teams Silver Chaser Relationship Specialty Start Date End Date Jose Powell MD [address] [place] [address] [place] [id number] PCP - General Pediatrics 12/13/23
--- OUTSIDE RECORDS SUMMARY | 2025-01-06 12:39 | XMS_ITS | Clinical Summary ---
Author Organization [facility] Address [address] [place] [address] [place] [phone] Phone Care Team Providers Care Direct Casting Operator Name Role Phone Pcp, Unknown Unavailable Unavailable Allergies No known active allergies Medications No known medications Social History Tobacco Use Types Packs/Day Years Used Date Smoking Tobacco: Never Smokeless Tobacco: Never Education Answer Date Recorded Are you interested in more education? Not on corey e 08/12/2022 Are you concerned about learning? Not on file 08/12/2022 No 08/12/2022 No 08/12/2022 Digital Access Answer Date Recorded No 09/09/2022 No 09/09/2022 No 09/09/2022 Reliable internet access at home? Not on file 09/09/2022 Device with a working camera? Not on file Sex and Gender Information Value Date Recorded Sex Assigned at Not on file Legal Sex Male 8:42 PM EDT Gender Identity Not on file Sexual Orientation Not on file Last Filed Vital Signs Vital Sign Reading Time Taken Comments Blood Pressure 137/74 10/12/2019 10:41 AM EDT Pulse 83 10/12/2019 10:41 AM EDT Temperature 36.9 C (98.5 F) 10/12/2019 10:41 AM EDT Respiratory Rate - - Oxygen Saturation 98% 10/12/2019 10:41 AM EDT Inhaled Oxygen Concentration - - Weight 54.4 kg (120 lb) 10/12/2019 10:41 AM EDT Height 172.7 cm (5' 8 ) 10/12/2019 10:41 AM EDT Body Mass Index 18.25 10/12/2019 10:41 AM EDT Body Mass Index Percentile 30.59% 10/12/2019 10: 41 AM EDT Growth Chart: CDC (Boys, 2-2 0 Years) Plan of Treatment Health Maintenance Due Date Last Done Comments BMI ASSESSMENT 2008 DEVELOPMENTAL/BEHAVIORAL SCREENING (PHQ, PSC, or SWYC) 2008 DEPRESSION SCREENING 2017 SMOKING Hx and SMOKELESS TOBACCO SCREENING 2018 MENINGOCOCCAL VACCINES (B) (1 of 2 - Standard) 2021 ADOLESCENT UNIVERSAL LIPID SCREENING 2022 HEPATITIS C SCREENING 2023 HIV ONE-TIME SCREENING (18-65 YEARS) 2023 INFLUENZA VACCINE (#1) 2024 , 02/03/2020, 01/19/2019, Additional history exists COVID-19 VACCINE ( - 2024- season) 2024 11/29/2020, 11/08/2020 COMBINED DTaP,Tdap,Td (7 - Td or Tdap) 05/20/2025 05/20/2015, 04/30/2009, 08/01/2006, Additional history exists HEPATITIS B VACCINES Completed 2005, 2005, 2005 PNEUMOCOCCAL VACCINES (0-49 years) Aged Out 05/02/2006, 2005, 2005, Additional history exists No longer eligible based on patient's age to complete this topic HIB VACCINES Completed 10/26/2006, 10/15, 2005, Additional history exists HEPATITIS A VACCINES Completed 01/25/2008, 10/27/19 07 VARICELLA VACCINES Completed 02/04/2010, 05/10/2006 MMR VACCINES Completed 04/28/2010, 08/01/2006 MENINGOCOCCAL VACCINES (ACWY) Aged Out 05/27/2016 No longer eligible based on patient's age to complete this topic HPV VACCINES Completed 04/27/2017, 05/27/2016 Medical Devices Not on file Insurance [facility] PPO [facility] PPO [facility] PPO PPO PPO PPO PPO [facility] PPO HEALTHCARE PPO PPO PPO PPO PPO PPO [facility] PPO PPO PPO PPO Care Teams Direct Casting Operator Relationship Specialty Start Date End Date Pcp, Unknown PCP - Pediatrics 08/04/20 Additional Source Comments The information contained in this document represents components of the legal health record. It is not the complete legal health record.[facility]
== END 2025-01-06 10:56 | disposition home or self-care (01) ==
LOC: HO.HMCFMS 10:19
PROVIDERS: Visit Provider Student in an Organized Health Care Education/Training Program
DX: H60.543 Acute eczematoid otitis externa, bilateral (principal); L29.0 Pruritus ani

== ENCOUNTER 2025-01-20 13:03 | Outpatient (AMB) | payer OTHER, SELFPAY ==
[2025-01-20 13:07] VITALS: BP 117/63; PULSE 215; RESP 16; TEMP 36.6; O2SAT 100; BMI 20.2
--- NOTE | 2025-01-20 13:07 | A.OFFPC_ITS ---
Vital Signs 01/20/25 13:07 Height 6 ft 0.05 in Weight 149 lb 4 oz BMI 20.2 BP 117/63 Blood Pressure Location Lt brachial Position Sitting Respiration 16 Pulse 215 H Pulse Source Pulse Oximeter Temp 97.8 F Temp Source Oral Pulse Oximetry (%) 100 Oxygen Delivery Method Room Air Intake Visit Reasons: 2 wk f/u Buttonhole Tacker Required: No Accompanied by: Self / Same As Patient Allergies No Known Allergies Allergy (Verified 01/20/25 13:09) Tobacco use date assessed: 01/06/25 Dental Screening Dental Screen Date: 01/06/25 Did you have a dental visit in the last 12 months?: Yes Did you have a dental problem in the last 6 months where you did not have access to dental care?: No Was dental information given to patient?: Patient has dentist HPI HPI Comments History of Present Illness Details History of Present Illness The patient is a 19-year-old male presenting with concerns of ear canal eczema and pruritus ani. Ear canal eczema - Reports reduced frequency of pruritus with mineral oil use. Has only been using it once a day will increase to twice a day Pruritus Ani: - Persistent anal itching without improv ement from current treatment. - No associated hemorrhoids or visible l esions. - Discussed potential exposure to pinwor ms, likely from a younger sibling. -he has been treated with mebendazole -will use hydrocortisone 1% cream topica l and Sitz bath to follow up in 2 weeks Review of Systems - Dermatological: Reports persistent kelle itching; denies visible lesions or hemorrhoids. - ENT: Reports reduced frequency of ear canal itching; denies other ear symptoms. 10-point ROS reviewed and negative excep t as noted in HPI Past Medical History - Discussed potential exposure to pinwor m, no evidence of active infestation currently. Health Maintenance Physical Exam General: Well-appearing, in no acute distress. Vital signs: Pulse noted to be inaccurately recorded as 215, but upon examination, it is within normal limits. HEENT: Normocephalic, atraumatic. PERRLA, EOMI. Conjunctiva clear, sclera anicteric. Oropharynx clear, mucous membranes moist. TMs intact bilaterally. Neck: Supple, no lymphadenopathy, no thyromegaly, no JVD or carotid bruits. Cardiovascular: RRR, normal S1/S2, no murmurs, rubs, or gallops. Peripheral pulses 2+ and symmetric. No edema. Respiratory: Lungs clear to auscultation bilaterally, no wheezes, rales, or rhonchi. Normal effort. Abdomen: Soft, non-tender, non-distended. Normoactive bowel sounds. No hepatosplenomegaly, no masses. MSK: Full range of motion, no joint swelling or deformity. Normal gait. Skin: Warm, dry, intact. No rashes, lesions, or pallor. Anus visualized and examined there is no evidence of infection or erythema excoriations skin tags fissures Neuro: Alert and oriented x3. Cranial nerves II-XII intact. Strength 5/5 throughout. Sensation intact. Reflexes 2+ symmetric. Normal coordination and gait. Psych: Appropriate mood and affect. Normal judgment and insight. Plan 1. He canal eczema - Increase mineral oil application to ma nage ear wax buildup. 2. Pruritus Ani - Initiate topical steroid application a nd sitz baths to alleviate symptoms. - Educate about exposure risks and preve ntive hygiene measures. Discussion Notes During our discussion, I emphasized the importance of managing ear canal eczema by increasing mineral oil application to twice daily, as it has successfully reduced pruritus frequency previously. For pruritus ani, I recommended initiating a topical steroid, and regular sitz baths to alleviate symptoms. We discussed pinworms as a potential source of itching, likely introduced by the patient's sibling, who is a child. He is status post mebendazole treatment I stressed the importance of hygiene to prevent recurrence. We also discussed fol low-up plans to ensure resolution. Patient was informed and verbally consented to the use of an ambient scribe for clinic note documentation during this visit. Patient Instructions - Use mineral oil in ears twice daily to reduce pruritus for maximum - Apply topical steroid to affected area once or twice daily for two weeks for itching relief. - Perform sitz baths with Epsom salt reg ularly. - Practice good hygiene, especially if i n contact with children to avoid pinworm reinfestation. Total time spent caring for the patient today was 30 minutes. This includes time spent before the visit reviewing the chart, time spent documenting, and time spent reviewing laboratory results, , medications, performing a medically necessary evaluation, counseling on diagnoses, care coordination, ordering appropriate medications. [facility] Family History Father Heart problem Mother Crohn disease Social History Housing: House Alcohol intake: current Alcohol intake frequency: does not drink Patient Tobacco Use Status: Former Tobacco user e-Cigarette/Vaping Use: Currently Using service: No Current occupational status: employed Cognitive needs: No Hearing needs: No Vision needs: No Questionnaire PHQ-9 Over the last 2 weeks, how often have you been bothered by any of the following problems? 1. Little interest or pleasure in doing things: not at all 2. Feeling down, depressed, or hopeless: not at all 3. Trouble falling or staying asleep, or sleeping too much: not at all 4. Feeling tired or having little energy: not at all 5. Poor appetite or overeating: not at all 6. Feeling bad about yourself - or that you are a failure or have let yourself or your family down: not at all 7. Trouble concentrating on things, such as reading the newspaper or watching te levision: not at all 8. Moving or speaking so slowly that other people could have noticed. Or the opposite - being so fidgety or restless that you have been moving around a lot more than usual: not at all 9. Thoughts that you would be better off or of hurting yourself in some way: not at all Total score: 0 Source: Developed by Drs. Gabe Herman, Sisi Salazar, Lonnie Hudson and colleagues, with an educational winnie from [employer]. Thrive Questionnaire Date Thrive assessed: 01/06/25 I am a: Patient What is your living situation today?: I have a steady place to live Within the past 12 months, did the food you bought not last and you didn't have the money to get more?: Never true Within the past 12 months, did you worry whether your food would run out before you got money to buy more?: Never true Do you have trouble paying for medicines?: No Do you have trouble getting transportation to medical appointments?: No Do you have trouble paying your heating and electricity bill?: No Do you have trouble taking care of your child, family member or friend?: No Are you currently unemployed and looking for a job?: No Are you interested in more education?: No Please select the resources that you would like help with: None Currently or been in a relationship where the following occur: No concerns reported THRIVE Score: 0 AUDIT C Alcohol Use Questionnaire (AUDIT-C) 1. How often do you have a drink containing alcohol?: Monthly or less 2. How many drinks containing alcohol do you have on a typical day when you are drinking?: 1 or 2 3. How often do you have six or more drinks on one occasion?: Never Total Score: 1 HAO-7 AMB Questionnaire HAO-7 Date HAO - 7 assessed: 01/06/25 Feeling nervous, anxious, or on edge: 0 = Not at all Not being able to stop or control worryin = Not at all Worrying too much about different things: 0 = Not at all Trouble relaxin = Not at all Being so restless that it is hard to sit still: 0 = Not at all Becoming easily annoyed or irritable: 0 = Not at all Feeling afraid as if something awful might happen: 0 = Not at all Total HAO-7 score (0-4 normal; 5-9 mild; 10-14 moderate; 15-21 severe): 0 Source: Developed by Drs. Gabe Herman, Sisi Salazar, Lonnie Hudson and colleagues, with an educational winnie from [employer]. Physical exam (Primary Care) Vital Signs: Last Vital Signs Resp 16 01/20/25 13:07 BMI result Body Mass Index 20.2 Tobacco/Smoking Status: Tobacco use Status Tobacco use date assessed 01/06/25 01/20/25 13:08 Patient Tobacco Use Status Former Tobacco user 01/20/25 13:08 e-Cigarette/Vaping Use Currently Using 01/20/25 13:08 PHQ-9: PHQ-9 Score PHQ-9: Total score 0 01/20/25 13:08 Thrive Assessment: Date of Thrive Assessment Date Thrive assessed 01/06/25 01/20/25 13:08 Currently or been in a relationship where the following occur: No concerns reported Coding Level of Care Code Est Pt Level 4 (23693) Diagnoses Eczema L30.9 Pruritus ani L29.0 Assessment & Plan Assessment & Plan (1) Eczema: Code(s): L30.9 - Dermatitis, unspecified (2) Pruritus ani: Code(s): L29.0 - Pruritus ani Plan Medications: New hydrocortisone 1% 1 appl topical BID-QID PRN 28.4 grams 0RF skin irritation
--- OUTSIDE RECORDS SUMMARY | 2025-01-20 15:24 | XMS_ITS | Clinical Summary ---
Author Organization [facility] Address [address] [place], [place] [id number] Phone Care Team Providers Care Candy Starch Mold Printer Name Role Phone Jose Powell MD Primary Care Provider [phone] Allergies No known active allergies Medications Spacer/Aero-Hold [...] performing well,denies symptoms of concern as of [facility] 05/16/2022 Assessment & Plan (05/19/2022 11:45 AM EST): Sandro doing well in school with IEP support including academic support and environmental modifications, denies need to explore return to medical treatment. Social anxiety disorder 04/02/2021 Overview (10/27/2023): Therapy begun with [facility] 03/202104/02/21; diag completed and dx on this date. [facility] 10/06/21; Working on contacting outpatient providers. F/u appt will be scheduled and services bridged. [facility] 02/25/22; Pt has presented consistent improvement in mood, fam unable to connect with outpatient provider. Monthly f/u appt will be scheduled. [facility] 10/27/23; Last appointment, goals met. [facility] Assessment & Plan (10/27/2023 11:20 AM EDT): [...] completed as necessary. PLAN: Follow up with [facility]; Last appointment, goals met. How to reconnect with support at [facility] was discussed. Patient goal is to reduce [...] completed as necessary. PLAN: Follow up with [facility]; Schedule monthly check-ins. I advised Sandro to [...] completed as necessary. PLAN: Follow up with [facility]; Schedule monthly check-ins. Virtual visit scheduled, family [...] as necessary. PLAN: 1. Follow up with [facility]; Schedule monthly check-ins. Virtual visit scheduled, family [...] as necessary. PLAN: 1. Follow up with [facility]; Virtual visit scheduled, family is aware that [...] as necessary. PLAN: 1. Follow up with [facility]; Virtual visit on April will scheduled when [...] as necessary. PLAN: 1. Follow up with [facility]; Virtual visit scheduled, family is aware that [...] as necessary. PLAN: 1. Follow up with [facility]; Virtual visit scheduled, family is aware that [...] as necessary. PLAN: 1. Follow up with [facility]; Virtual visit scheduled, family is aware that [...] as necessary. PLAN: 1. Follow up with [facility]; Virtual visit scheduled, family is aware that [...] as necessary. PLAN: 1. Follow up with [facility]; Virtual visit scheduled, family is aware that [...] as necessary. PLAN: 1. Follow up with [facility]; Virtual visit scheduled, family is aware that [...] as necessary. PLAN: 1. Follow up with [facility]; Virtual visit scheduled, family is aware that [...] as necessary. PLAN: 1. Follow up with [facility]; Virtual visit scheduled, family is aware that [...] completed as necessary. PLAN: Follow up with [facility]; Virtual visit scheduled. Patient goal is to [...] completed as necessary. PLAN: Follow up with [facility]; Virtual visit scheduled. Patient goal is to reduce symptoms of depression and anxiety. Behavioral Recommendations: Continue focusing on strategies discussed during our visits Attend to scheduled appt. Assessment & Plan (06/13/2023 3:25 PM EST): Continue with [facility] - has follow up in one month [...] completed as necessary. PLAN: Follow up with [facility]; Virtual visit in one month, I advised [...] completed as necessary. PLAN: Follow up with [facility]; Virtual visit scheduled in 2 weeks Patient [...] completed as necessary. PLAN: Follow up with [facility]; Schedule monthly check-ins. Virtual visit scheduled, family [...] Type Department Care Team Description 01/02/2025 Telephone [facility] - [address] [address] Destiney Lebron flu vaccine from [...] 11/01/2023 2:2 5 PM EDT Growth Chart: [facility] (Boys, 2-2 0 Years) Plan of Treatment [...] Completed 12/13/2021, 017 Procedures * Due to [place] [employer] law, this organization might not be sharing sensitive test results. Procedure Name Priority Date/Time Associated Diagnosis Comments CHLAMYDIA AND GONORRHEA, AMPLIFIED Routine 05/16/2022 5:01 PM EST Routine screening for STI (sexually transmitted infection) from Last 3 Months or Most Recently Relevant to Health Maintenance Results * Due to [place] [employer] law, this organization might not be sharing sensitive test results. * Chlamydia and Gonorrhoea, Amplified (05/16/2022 5:01 PM EST) Chlamydia Trachomatis, DNA Probe NEGATIVE (NEG) [facility] Comment: No Chlamydia Trachomatis RNA detected in this patient's sample (REFERENCE RANGE/NORMAL VALUE: NOT DETECTED) Note: This test uses gravel hauler- mediated amplification method to detect rRNA from C. Trachomatis URINE GC AMP PROBE NEGATIVE (NEG) [facility] Comment: No Neisseria Gonorrhoeae RNA detected in this patient's sample (REFERENCE RANGE/NORMAL VALUE: NOT DETECTED) NOTE: This test uses gravel hauler-mediated amplification method to detect rRNA from N.Gonorrhoeae. [...] without risk of sexual abuse. Consult the [facility] if needed. Contact phone number . Therapeutic failure or success cannot be determined with the Aptima Combo2 assay since nucleic acid may persist following appropriate antimicrobial therapy. The Centers for Disease Control and Prevention (CDC) recommends confirmatory retesting using culture or a different nucleic acid amplification test when positive results occur, if indicated. Testing performed or reported by [facility], a Service of [facility], [address] [place] [address] Joe Yates MD, Ambulance Attendant [facility]# [id number] Urine (Urine) 05/16/2022 5:0 1 PM EST 05/17/2022 9:08 AM EST Demetria Montez MD LAB MICROBIOLOGY - GENERAL [place] RIGGS Final Result [facility] from Last 3 Months or Most Recently Relevant to Health Maintenance Insurance AETNA AETNA Care Teams Candy Starch Mold Printer Relationship Specialty Start Date End Date Jose Powell MD [address] [place] [address] [place] [id number] PCP - General Pediatrics 12/13/23
--- OUTSIDE RECORDS SUMMARY | 2025-01-20 15:24 | XMS_ITS | Encounter Summary ---
Author Organization [facility] Address [address] [place] [address] [place] [phone] Phone Care Team Providers Care Technical Service Representative Name Role Phone Hillary Gamboa MD Primary Care Provider Pcp, Unknown Unavailable Unavailable Encounter Details Date Type Department Care Team (Latest Contact Info) Description 05/07/2018 Transcribe Orders [facility] [address] [place] [phone] Hillary Gamboa MD [address] [place] [phone] Encounter for routine child health examination without [...] EST) CHOLESTEROL 109 0 - 169 mg/dL [facility] Comment: Pediatric Reference Ranges for 2 to 18 years Acceptable: Less than 170 mg/dL Borderline: 170 - 199 mg/dL High: Greater than or equal to 200 mg/dL Blood 05/07/2018 8:03 AM EST 05/07/2018 8:11 AM EST us Hillary Gamboa MD LAB BLOOD ORDERABLES Fi nal Result [address] [address] * Glucose (05/07/2018 8:03 AM EST) GLUCOSE 84 70 - 99 mg/dL [facility] Blood 05/07/2018 8:03 AM EST 05/07/2018 8:11 AM EST Hillary Gamboa MD LAB BLOOD ORDERABLES Fi nal Result Performing Organization Address City/[facility]/ZIP Co de Phone Number [address] [address] * TSH (05/07/2018 8:03 AM EST) Pathologist [facility] TSH 2.12 0.27 - 4.20 uIU/mL [facility] Blood 05/07/2018 8:03 AM EST 05/07/2018 8:11 AM EST Hillary Gamboa MD LAB BLOOD ORDERABLES Fi nal Result Performing Organization Address [facility]/[place] Co de Phone Number [address] [address] * (ABNORMAL) CBC and differential (05/07/2018 8:03 AM EST) WBC 4.03 3.40 - 11.20 K/uL [facility] RBC 5.64(H) 4.50 - 5.50 M/uL [facility] HGB 14.8 13.0 - 17.0 g/dL [facility] HCT 41.9 40.0 - 51.0 % [facility] PLT 170 130 - 400 K/uL [facility] MCV 74.3(L) 79.0 - 98.0 fL [facility] MCH 26.2 25.0 - 35.0 pg [facility] MCHC 35.3 31.0 - 37.0 g/dL [facility] RDW 12.8 10.8 - 14.6 % [facility] MPV 11.4 9.4 - 12.4 fl [facility] NRBC 0.00 0.00 /100 WBCs [facility] ABSOLUTE NRBC 0.00 0.00 K/uL [facility] DIFF METHOD Auto [facility] NEUTS 25.9(L) 45.30 - 77.70 % [facility] LYMPHS 61.5(H) 12.30 - 39.70 % [facility] MONOS 10.2 4.10 - 12.80 % [facility] EOS 1.7 0 - 7.2 % [facility] BASOS 0.5 0 - 2.80 % [facility] Granulocytes, immature (%) 0.2 0.0 - 0.9 % [facility] ABSOLUTE NEUTS 1.04(L) 1.40 - 7.70 K/uL [facility] ABSOLUTE LYMPHS 2.48 0.60 - 3.20 K/uL [facility] ABSOLUTE MONOS 0.41 0.11 - 0.59 K/uL [facility] ABSOLUTE EOS 0.07 0.01 - 0.50 K/uL [facility] ABSOLUTE BASOS 0.02 0.00 - 0.08 K/uL [facility] Granulocytes, immature 0.01 0.00 - 0.05 K/uL [facility] Blood 05/07/2018 8:03 AM EST 05/07/2018 8:11 AM EST Hillary Gamboa MD LAB BLOOD ORDERABLES Fi nal Result Performing Organization Address City/State/[place] Co de Phone Number [address] [phone] documented in this encounter Visit Diagnoses Diagnosis Encounter for routine child health examination without abnormal findings- Primary documented in this encounter Care Teams Technical Service Representative Relationship Specialty Start Date End Date Hillary Gamboa MD PCP - General Pediatrics 02/22/17 08/04/20 Pcp, Unknown PCP - Pediatrics 08/04/20 documented as of this encounter Additional Source Comments The information contained in this document represents components of the legal health record. It is not the complete legal health record.[facility]
--- OUTSIDE RECORDS SUMMARY | 2025-01-20 15:24 | XMS_ITS | Encounter Summary ---
Author Organization [facility] Address [address] [place] [address] [place] [phone] Phone Care Team Providers Care Tourist Adviser Name Role Phone Hillary Gamboa MD Primary Care Provider Pcp, Unknown Unavailable Unavailable Encounter Details Date Type Department Care Team (Latest Contact Info) Description 02/22/2017 Transcribe Orders [facility] Laboratory [address] [place] [id number] System, Provider Not In, PhD [facility] [address] [address] Acute streptococcal pharyngitis (Primary Dx) Social History [...] PM EST) Specimen Source/ Description THROAT THROAT [facility] Special Requests None [facility] Culture/Test NEGATIVE FOR GRP A BETA STREPTOCOCCI [facility] Report Status 02/24/2017 FINAL [facility] Other (Throat) 02/22/2017 5: 29 PM EST 02/22/2017 5:39 PM EST us Provider Not In System PhD MICROBIOLOGY - GENERA L ORDERABLES Final Result [facility] [address] [place] [address] documented in this encounter Visit Diagnoses Diagnosis Acute streptococcal pharyngitis- Primary Streptococcal sore throat documented in this encounter Care Teams Tourist Adviser Relationship Specialty Start Date End Date Hillary Gamboa MD PCP - General Pediatrics 02/22/17 08/04/20 Pcp, Unknown PCP - Pediatrics 08/04/20 documented as of this encounter Additional Source Comments The information contained in this document represents components of the legal health record. It is not the complete legal health record.[facility]
--- OUTSIDE RECORDS SUMMARY | 2025-01-20 15:24 | XMS_ITS | Clinical Summary ---
Author Organization [facility] Address [address] [place] [address] [place] [phone] Phone Care Team Providers Care Labor Specialist Name Role Phone Pcp, Unknown Unavailable Unavailable [...] 05/27/2016 Medical Devices Not on file Insurance [facility] PPO [facility] PPO [facility] PPO PPO PPO PPO [facility] PPO HEALTHCARE PPO PPO PPO PPO PPO PPO [facility] PPO PPO PPO PPO Care Teams Labor Specialist Relationship Specialty Start Date End Date Pcp, Unknown PCP - Pediatrics 08/04/20 Additional Source Comments The information contained in this document represents components of the legal health record. It is not the complete legal health record.[facility]
== END 2025-01-20 13:29 | disposition home or self-care (01) ==
LOC: HO.HMCFMS 13:03
PROVIDERS: PCP Student in an Organized Health Care Education/Training Program; Visit Provider Student in an Organized Health Care Education/Training Program
DX: L30.9 Dermatitis, unspecified (principal); L29.0 Pruritus ani